=== PATIENT | female | born 1975 | race African-American/Black ===

== ENCOUNTER 2022-08-26 12:39 | Emergency (ER) | payer MEDICAID, OTHER ==
[~2022-08-26] VITALS: Ht 160 cm; Wt 72.0 kg
[2022-08-26] MEDS ORDERED: ONDANSETRON HCL 4MG/2ML INJ IV STA (13:02)
[2022-08-26] MEDS ORDERED: SODIUM CHLORIDE 0.9% 1,000 ML IV ONE (13:15)
[2022-08-26 15:38] LABS: HEMATOCRIT. 39.8 % (36.0-48.0); HEMOGLOBIN. 13.2 g/dL (12.0-16.0); MEAN CORPUSCULAR HEMOGLOBIN 31.1 pg (28.0-32.0); MEAN CORPUSCULAR VOLUME 93.8 fL (81.0-99.0); MEAN PLATELET VOLUME 8.1 fl (7.4-10.4); PLATELET 322 x1000/uL (130-400); RED BLOOD CELL COUNT 4.24 mill/uL (4.2-5.4); RED CELL DISTRIBUTION WIDTH 14.3 % (11.6-14.6)
[2022-08-26 15:44] LABS: CHLORIDE 104 mEq/L (98-107)
[2022-08-26 15:47] LABS: INR 3.4; PROTHROMBIN TIME 32.9 sec (9.6-11.0)
[2022-08-26 15:48] LABS: CLARITY URINE CLEAR (CLEAR); COLOR URINE YELLOW (YELLOW); KETONES URINE NEGATIVE (NEGATIVE); LEUKOCYTE ESTERASE URINE 2+ (NEGATIVE); NITRITE URINE NEGATIVE (NEGATIVE); OCCULT BLOOD URINE NEGATIVE (NEGATIVE); PH URINE 5.5 (4.5-8.0); PROTEIN URINE NEGATIVE (NEGATIVE); SPECIFIC GRAVITY URINE 1.021 (1.005-1.030)
[2022-08-26 16:00] LABS: HCG SCREEN NEGATIVE
[2022-08-26 16:14] LABS: PLATELET ESTIMATE NORMAL
[2022-08-26] MEDS ORDERED: POTASSIUM CHLORIDE 20MEQ/PACKET PO NR (16:45)
[2022-08-26] MEDS ORDERED: SULFAMETHOXAZOLE/TRIMETHOPRIM 800/160MG TABLET PO ONE (17:45)
[2022-08-26] MEDS ORDERED: IOHEXOL-300 100 ML BOTTLE ONE (19:07)
[2022-08-26] MEDS ORDERED: IBUP-2028 MT (20:09)
[2022-08-26] MEDS ORDERED: NITR-87 MT (20:09)
[2022-08-26 20:30] VITALS: BP 162/91
== END 2022-08-26 20:45 | disposition home or self-care (01) ==
LOC: ER 12:39
DX: N39.0 Urinary tract infection, site not specified (principal); Z90.710 Acquired absence of both cervix and uterus; Z90.49 Acquired absence of other specified parts of digestive tract
CPT/HCPCS: 36415; 74177; 80053; 81003; 83690; 84703; 85025; 85610; 96361; 96374; 99284; J2405; J7030; Q9967